=== PATIENT | male | born 1985 | race Two or more races ===

== ENCOUNTER 2021-10-19 07:30 | Emergency (ER) | payer OTHER ==
[~2021-10-19] VITALS: Ht 185.4 cm; Wt 83.9 kg
[2021-10-19 07:46] VITALS: BP 147/80
--- NOTE | 2021-10-19 08:05 | NUR ---
provided w/ wound care.
--- NOTE | 2021-10-19 08:14 | NUR ---
seen and evaluated by dr luciano. medically cleared. d/c to [facility] in stable condition.
== END 2021-10-19 08:16 ==
LOC: ER 07:34
DX: S90.822A Blister (nonthermal), left foot, initial encounter (principal); F20.9 Schizophrenia, unspecified; X58.XXXA Exposure to other specified factors, initial encounter; Y93.89 Activity, other specified; Y92.89 Other specified places as the place of occurrence of the external cause; Y99.8 Other external cause status